=== PATIENT | female | born 1985 | race Caucasian/White ===

== ENCOUNTER 2020-09-06 08:04 | Outpatient (REF) | payer OTHER, SELFPAY ==
[2020-09-06 09:06] LABS: Hematocrit 35.9 % (37-47); Hemoglobin 11.4 g/dl (12.0-16.0); Mean Corpuscular HGB Conc 31.8 g/dl (31.0-35.0); Mean Corpuscular Hemoglobin 28.6 pg (27.0-33.0); Mean Corpuscular Volume 90.2 fL (80-98); Mean Platelet Volume 10.6 fL (9.4-12.3); Platelet Count 269 X10*3/uL (160-400); Red Blood Count 3.98 X10*6/uL (4.20-5.50); Red Cell Distribution Width 13.2 % (11.0-16.0); White Blood Count 9.1 X10*3/uL (4.8-10.8)
[2020-09-06 09:35] LABS: Alanine Aminotransferase 18 U/L (0-31); Albumin Level 4.1 g/dL (3.5-5.0); Alkaline Phosphatase 79 U/L (39-117); Anion Gap 13 (12-20); Aspartate Amino Transferase 24 U/L (5-31); Bilirubin Total 0.8 mg/dL (0.0-1.0); Blood Urea Nitrogen 9 mg/dL (9-16); Calcium 9.1 mg/dL (8.4-10.2); Carbon Dioxide 28 mmol/L (22-29); Chloride 103 mmol/L (96-108); Cholesterol 193 mg/dL; Estimated Glomerular Filt Rate > 60; Glucose Random 90 mg/dL (60-115); HDL Cholesterol 51 mg/dL; LDL Cholesterol Calculated 115 mg/dl; Potassium 4.4 mmol/L (3.3-5.1); Sodium 140 mmol/L (135-145); Total Protein 6.9 g/dL (6.5-8.0); Triglycerides 138 mg/dL
[2020-09-06 09:54] LABS: ~HepC Num1 0.07 S/CO (0.00-0.79); ~Hepatitis C Antibody Nonreactive (Nonreactive)
== END 2020-09-06 08:05 | disposition home or self-care (01) ==
LOC: HO.LAB 08:04
PROVIDERS: PCP Nurse Practitioner Family; Visit Provider Nurse Practitioner Family
DX: Z00.00 Encounter for general adult medical examination without abnormal findings (principal); E55.9 Vitamin D deficiency, unspecified
CPT/HCPCS: 36415; 80053; 80061; 82306; 85027; 86803

== ENCOUNTER 2021-12-21 12:14 | Outpatient (REF) | payer OTHER, SELFPAY ==
[2021-12-21 12:28] LABS: MANUAL DIFF FLAG NO
[2021-12-21 13:21] LABS: Basophils Percent Auto 0.3 % (0-2); Eosinophils Absolute Auto 0.2 X10*3/uL (0.0-0.4); Eosinophils Percent Auto 2.2 % (0-4); Hematocrit 34.5 % (37.0-47.0); Hemoglobin 10.4 g/dl (12.0-16.0); Imm Gran Abs Auto 0.07 X10*3/uL (0.00-0.03); Imm Gran Pct Auto 0.6 % (0.0-0.4); Lymphocytes Absolute Auto 2.3 X10*3/uL (1.2-4.9); Lymphocytes Percent Auto 21.4 % (20-40); Mean Corpuscular HGB Conc 30.1 g/dl (31.0-35.0); Mean Corpuscular Volume 79.5 fL (80.0-98.0); Mean Platelet Volume 10.9 fL (9.4-12.3); Monocytes Absolute Auto 0.6 X10*3/uL (0.1-1.2); Monocytes Percent Auto 5.7 % (2-11); Neutrophils Absolute Auto 7.6 x10*3/uL (2.0-8.3); Neutrophils Percent Auto 69.8 % (45-73); Platelet Count 313 X10*3/uL (160-400); Red Blood Count 4.34 X10*6/uL (4.20-5.50); Red Cell Distribution Width 17.2 % (11.0-16.0); White Blood Count 10.9 X10*3/uL (4.8-10.8)
[2021-12-21 14:09] LABS: Iron 69 mcg/dL (30-160); Percent Iron Saturation 17 % (15-50); Total Iron Binding Capacity 411 mcg/dL (228-428); Unsaturated Iron Binding 342 ug/dL
== END 2021-12-21 12:15 | disposition home or self-care (01) ==
LOC: HO.LAB 12:14
PROVIDERS: PCP Nurse Practitioner Family; Visit Provider Nurse Practitioner Family
DX: D64.9 Anemia, unspecified (principal)
CPT/HCPCS: 36415; 83540; 85025

== ENCOUNTER 2022-09-28 04:18 | Emergency (ER) | payer OTHER, SELFPAY ==
--- NOTE | ~2022-09-28 | US_ITS ---
EXAMINATION: US ABDOMEN LIMITED CLINICAL INFORMATION: Right upper quadrant pain. Evaluate for cholecystitis. COMPARISON: CT scan of the abdomen and pelvis dated 09/28/2022. TECHNIQUE: Real-time imaging of the gallbladder and common bile duct. FINDINGS: GALLBLADDER: Multiple calcified shadowing gallstones are seen within the dependent portion of the gallbladder, appearing mobile. No gallbladder wall thickening or pericholecystic edema noted. No sonographic Torres sign is elicited while scanning over the gallbladder. COMMON BILE DUCT: Normal in caliber measuring 0.3 cm in diameter. FREE FLUID: None. US/US abdomen limited IMPRESSION: Cholelithiasis. No definite sonographic evidence of acute cholecystitis. Close clinical correlation and follow-up as clinically appropriate is recommended.
--- NOTE | ~2022-09-28 | CT_ITS ---
EXAMINATION: CT ABDOMEN AND PELVIS WITHOUT CONTRAST CLINICAL INFORMATION: Right upper quadrant/right flank pain. COMPARISON: CT abdomen/pelvis dated 08/14/2014. TECHNIQUE: Multidetector volumetric imaging was performed from the superior aspect of the liver through the pubic symphysis. Sagittal and coronal reformatted images were obtained on the technologist's workstation. This CT examination was performed using dose optimization techniques as appropriate, variously including the following: *Automated exposure control *Adjustment of mA and/or kV according to patient size (this includes techniques or standardized protocols for targeted exams where dose is matched to indication/reason for exam; i.e. extremities or head) *Use of iterative reconstruction technique DLP: 1082 mGy-cm FINDINGS: LUNG BASES: The visualized lung bases are unremarkable. LIVER, GALLBLADDER, AND BILIARY TREE: The liver is normal in size, shape, and attenuation. No focal hepatic lesion or biliary ductal dilatation is present. The gallbladder is unremarkable with no evidence of radiopaque gallstones, gallbladder wall thickening, or obvious pericholecystic inflammatory changes. PANCREAS: Unremarkable. SPLEEN: Unremarkable. ADRENAL GLANDS: Unremarkable. KIDNEYS AND URETERS: The kidneys are normal in size, shape, and attenuation. No hydronephrosis, hydroureter, or calculi seen. No perinephric stranding. Multiple phleboliths redemonstrated within the pelvis. BLADDER: Nondistended. No urinary bladder stone. No associated inflammatory change. GASTROINTESTINAL TRACT: No small- or large-bowel obstruction. No bowel wall thickening or inflammatory change. Unremarkable appendix. PERITONEAL CAVITY: No intra-abdominal free air or free fluid. No intra-abdominal mass or organized fluid collection/abscess formation. ABDOMINAL WALL: No significant hernia is appreciated. LYMPH NODES: No significant lymphadenopathy. Central mesenteric lymph nodes are not significantly changed. VASCULAR: Unremarkable. PELVIC VISCERA: The uterus and adnexa are unremarkable. OSSEOUS STRUCTURES: Unremarkable. CT/CT abdomen pelvis wo IV con IMPRESSION: 1. No renal or ureteral stone. No hydronephrosis or hydroureter. Nondistended urinary bladder without associated inflammatory change. 2. No bowel wall thickening or inflammatory change. No small- or large-bowel obstruction. Unremarkable appendix. 3. No intra-abdominal mass, lymphadenopathy, or ascites. Fleischner guidelines were followed.
[2022-09-28 04:30] VITALS: BP 147/109; PULSE 76; RESP 16; TEMP 36.4; O2SAT 98; BMI 44.9
[2022-09-28 05:07] LABS: Hematocrit 35.7 % (37.0-47.0); Mean Corpuscular HGB Conc 30.8 g/dl (31.0-35.0); Mean Corpuscular Hemoglobin 24.8 pg (27.0-33.0); Mean Corpuscular Volume 80.6 fL (80.0-98.0); Mean Platelet Volume 10.9 fL (9.4-12.3); Platelet Count 323 X10*3/uL (160-400); Red Blood Count 4.43 X10*6/uL (4.20-5.50); Red Cell Distribution Width 15.6 % (11.0-16.0); White Blood Count 13.4 X10*3/uL (4.8-10.8)
--- NOTE | 2022-09-28 05:20 | PC.NURSE ---
Pt presents with c/o epigastric pain that radiates around into back on right side. Pain is described as a burning pain and rated 10/10. Symptoms started at approx 2300 hours last night. Pt took ibuprofen at onset and tylenol at 0100 hours with no relief. Has nausea, but denies vomiting, chest pain, shortness of breath, any fever or recent trauma. No known history of kidney, liver, or gallbladder problems.
[2022-09-28 05:28] LABS: Alanine Aminotransferase 12 U/L (0-31); Albumin Level 4.3 g/dL (3.5-5.0); Alkaline Phosphatase 83 U/L (39-117); Anion Gap 14 (12-20); Aspartate Amino Transferase 13 U/L (5-31); Bilirubin Total 0.2 mg/dL (0.0-1.0); Blood Urea Nitrogen 13 mg/dL (9-16); Calcium 9.3 mg/dL (8.4-10.2); Carbon Dioxide 23 mmol/L (22-29); Chloride 108 mmol/L (96-108); Creatinine Clr Calc Pharmacy 133.5; Estimated Glomerular Filt Rate > 60; Glucose Random 115 mg/dL (60-115); Lipase 45 U/L (8-78); Potassium 4.7 mmol/L (3.3-5.1); Sodium 140 mmol/L (135-145); Total Protein 7.1 g/dL (6.5-8.0)
[2022-09-28] MEDS: Morphine Sulfate 4 MG/ML CARTRIDGE IVPUSH (05:34)
[2022-09-28] MEDS: ondansetron HCL 4 MG/2 ML VIAL IVPUSH (05:37)
[2022-09-28] MEDS: 0.9 % Sodium Chloride 1,000 ML 999 ML IV (05:39)
--- NOTE | 2022-09-28 05:52 | PC.NURSE ---
20G IV established right AC. No infiltration, redness, or pain. Flushes well.
[2022-09-28 06:24] LABS: Appearance Urine Cloudy; Color Urine Yellow; Glucose Urine UA Negative (Negative); Leukocyte Esterase Urine Negative (Negative); Nitrite Urine Negative (Negative); Specific Gravity - Urine 1.025 (1.005-1.025); UMIC TRIGGER UACC YES; Urine Blood Negative (Negative); Urine Ketones Negative (Negative); Urine Protein 30 (1+) mg/dL (Neg-Trace)
[2022-09-28 06:27] LABS: UPreg QC Valid YES; Urine Pregnancy NEGATIVE (NEGATIVE)
[2022-09-28 06:28] LABS: Bacteria Urine Trace (None Seen); Hyaline Casts Urine 0-2 /LPF (0-2); RBC Urine 0-2 /HPF (0-2); WBC Urine 0-5 /HPF (0-5)
--- NOTE | 2022-09-28 07:53 | ED.ABDPAIN ---
HPI - Abdominal Pain General Chief Complaint: Abdominal Pain Stated Complaint: Abdominal pain to back Time Seen by Provider: 09/28/22 07:36 Source: patient Mode of arrival: ambulatory Limitations: no limitations History of Present Illness HPI narrative: This is a 37 years old female presented to the emergency department complaining of upper abdominal pain since last night, the pain is radiated to the back denies any fever diarrhea MD elicited complaint: abdominal pain Pertinent past history: none Onset (ago): day(s) (1) Location: epigastric Radiation: none Exacerbating factors: nothing Relieving factors: nothing Related Data Previous Rx's Medication Instructions Recorded oxycodone 5 mg capsule 5 mg PO Q8H PRN pain #12 caps 09/28/22 Allergies Allergy/AdvReac Type Severity Reaction Status Date / Time No Known Allergies Allergy Unverified 03/02/20 15:51 Review of Systems Constitutional: Reports no additional constitutional complaints Reports system reviewed and no additional complaints, except as documented Gastrointestinal: Reports no additional gastrointestinal complaints PMFSH Social History Social History Advance Directives: No Advance Directives Information Provided: Yes Physical Exam ED Vital Signs: Vital Signs - 24 hr 09/28/22 04:30 Temperature 97.5 F Pulse Rate 76 Respiratory Rate 16 Blood Pressure 147/109 H Pulse Oximetry 98 Oxygen Delivery Method Room Air BMI result Body Mass Index 44.9 Const General: cooperative Nutritional Appearance: obese Orientation/consciousness: oriented to person HENMT Head: Yes normal to inspection General nose exam: Normal external nose present Face and sinus: Yes normal facial exam Mouth: Normal oral and palatal mucosa present Throat: Yes posterior oropharynx normal Neck Neck: Yes normal visual inspection Chest Chest palpation & inspection: normal inspection of the chest Resp Effort & Inspection: normal respiratory effort Cardio Jugular venous distension: no JVD Rate: regular rate Rhythm: regular rhythm GI Inspection: Yes normal to inspection Palpation (GI): Soft to palpation and Tenderness to palpation present (GI) (Tenderness in the epigastric area) Percussion: Yes normal to percussion Skin General skin exam: no rashes or lesions noted Neuro General: oriented to person Cranial nerves: Yes CN's II-XII intact bilaterally Course Reevaluation(s) Reevaluation #1: I re-examined the patient at 09:45 a she is completely asymptomatic and she has no abdominal pain, ultrasound shows that she has gallstones him a no evidence of acute cholecystitis, she has a normal LFT I think at this point he can be discharged home and follow-up as outpatient with surgery. Patient and mother are very comfortable with the plan she will return if she is worse she will follow low-fat diet Time: 09:46 Medical Decision Making Medical Decision Making [facility] Narrative: Patient presented with upper abdominal pain with Differential Diagnosis Differential Diagnoses: The differential diagnosis associated with the presentation includes Gastritis/cholecystitis/pancreatitis Admission/Observation Consideration of admission/observation: Escalation of care including admission/observation considered Lab Data [facility] Lab Attestation statement: I reviewed the patient's lab results. 09/28/22 05:02 09/28/22 05:02 Labs: Lab Results 09/28/22 09/28/22 09/28/22 Range/Units 05:02 05:02 06:16 WBC 13.4 H (4.8-10.8) X10*3/uL RBC 4.43 (4.20-5.50) X10*6/uL Hgb 11.0 L (12.0-16.0) g/dl Hct 35.7 L (37.0-47.0) % MCV 80.6 (80.0-98.0) fL MCH 24.8 L (27.0-33.0) pg MCHC 30.8 L (31.0-35.0) g/dl RDW 15.6 (11.0-16.0) % Plt Count 323 (160-400) X10*3/uL MPV 10.9 (9.4-12.3) fL Absolute Nucleated RBC 0.000 (0.0-0.012) X10*3/uL Nucleated RBC % (auto) 0.0 (0.0-0.2) /100WBC Sodium 140 (135-145) mmol/L Potassium 4.7 (3.3-5.1) mmol/L Chloride 108 (96-108) mmol/L Carbon Dioxide 23 (22-29) mmol/L Anion Gap 14 (12-20) BUN 13 (9-16) mg/dL Creatinine 0.75 (0.5-1.4) mg/dL Estim Creat Clear Calc 133.5 Estimated GFR > 60 Random Glucose 115 (60-115) mg/dL Calcium 9.3 (8.4-10.2) mg/dL Total Bilirubin 0.2 (0.0-1.0) mg/dL AST 13 (5-31) U/L ALT 12 (0-31) U/L Alkaline Phosphatase 83 (39-117) U/L Total Protein 7.1 (6.5-8.0) g/dL Albumin 4.3 (3.5-5.0) g/dL Lipase 45 (8-78) U/L Urine Color Yellow Urine Appearance Cloudy Urine pH 8.0 (5.0-9.0) Ur Specific [place] 1.025 (1.005-1.025) Urine Protein 30 (1+) H (Neg-Trace) mg/dL Urine Glucose (UA) Negative (Negative) mg/dL Urine Ketones Negative (Negative) mg/dL Urine Blood Negative (Negative) Urine Nitrite Negative (Negative) Ur Leukocyte Esterase Negative (Negative) Urine RBC 0-2 (0-2) /HPF Urine WBC 0-5 (0-5) /HPF Ur Squamous Epith Cells 11-20 (0-2) /HPF Urine Bacteria Trace (None Seen) Hyaline Casts 0-2 (0-2) /LPF Urine Test (NEGATIVE) 09/28/22 Range/Units 06:16 WBC (4.8-10.8) X10*3/uL RBC (4.20-5.50) X10*6/uL Hgb (12.0-16.0) g/dl Hct (37.0-47.0) % MCV (80.0-98.0) fL MCH (27.0-33.0) pg MCHC (31.0-35.0) g/dl RDW (11.0-16.0) % Plt Count (160-400) X10*3/uL MPV (9.4-12.3) fL Absolute Nucleated RBC (0.0-0.012) X10*3/uL Nucleated RBC % (auto) (0.0-0.2) /100WBC Sodium (135-145) mmol/L Potassium (3.3-5.1) mmol/L Chloride (96-108) mmol/L Carbon Dioxide (22-29) mmol/L Anion Gap (12-20) BUN (9-16) mg/dL Creatinine (0.5-1.4) mg/dL Estim Creat Clear Calc Estimated GFR Random Glucose (60-115) mg/dL Calcium (8.4-10.2) mg/dL Total Bilirubin (0.0-1.0) mg/dL AST (5-31) U/L ALT (0-31) U/L Alkaline Phosphatase (39-117) U/L Total Protein (6.5-8.0) g/dL Albumin (3.5-5.0) g/dL Lipase (8-78) U/L Urine Color Urine Appearance Urine pH (5.0-9.0) Ur Specific [place] (1.005-1.025) Urine Protein (Neg-Trace) mg/dL Urine Glucose (UA) (Negative) mg/dL Urine Ketones (Negative) mg/dL Urine Blood (Negative) Urine Nitrite (Negative) Ur Leukocyte Esterase (Negative) Urine RBC (0-2) /HPF Urine WBC (0-5) /HPF Ur Squamous Epith Cells (0-2) /HPF Urine Bacteria (None Seen) Hyaline Casts (0-2) /LPF Urine Test NEGATIVE (NEGATIVE) Radiology Impression Discussion of test interpretation with radiology: I have reviewed the radiologist's reading. Radiologist Impression: GALLBLADDER: Multiple calcified shadowing gallstones are seen within the dependent portion of the gallbladder, appearing mobile. No gallbladder wall thickening or pericholecystic edema noted. No sonographic Torres sign is elicited while scanning over the gallbladder. COMMON BILE DUCT: Normal in caliber measuring 0.3 cm in diameter. FREE FLUID: None. US/US abdomen limited IMPRESSION: Cholelithiasis. No definite sonographic evidence of acute cholecystitis. Close clinical correlation and follow-up as clinically appropriate is recommended. ? Dictated By: Coral Hwang MD Signed By: <Electronically signed by Coral Hwang MD in OV> 09/28/22 0900 Medications Administered Discontinued Medications Generic Name Dose Route Start Last Admin Trade Name Freq PRN Reason Stop Dose Admin Sodium Chloride 1,000 mls @ 999 mls/hr 09/28/22 05:24 09/28/22 07:15 Ns IV 09/28/22 06:24 Infused .Q1H1M ONE Infusion Morphine Sulfate 4 mg 09/28/22 05:24 09/28/22 05:34 Morphine Sulfate 4 Mg/Ml Cartridge IVPUSH 09/28/22 05:25 4 mg ONCE ONE Administration Protocol Ondansetron HCl 4 mg 09/28/22 05:24 09/28/22 05:37 Ondansetron Hcl 4 Mg/2 Ml Vial IVPUSH 09/28/22 05:25 4 mg ONCE ONE Administration Discharge Plan Discharge Clinical Impression: Biliary colic Patient Disposition: Home, Self-Care Instructions: Biliary Colic (ED), Gallstones (ED) Prescriptions: New oxycodone 5 mg capsule 5 mg PO Q8H PRN (Reason: pain) Qty: 12 0RF Rx Instructions: Partial Fill upon patient request.
[2022-09-28 10:02] VITALS: BP 141/88; PULSE 82; RESP 18; TEMP 36.7; O2SAT 98
== END 2022-09-28 10:25 | disposition home or self-care (01) ==
PROVIDERS: Internal Medicine; Emergency Provider Emergency Medicine; PCP Nurse Practitioner Family
DX: K80.50 Calculus of bile duct without cholangitis or cholecystitis without obstruction (principal); E66.9 Obesity, unspecified; Z68.41 Body mass index [BMI] 40.0-44.9, adult
CPT/HCPCS: 36415; 74176; 76705; 80053; 81001; 81025; 83690; 85027; 96361; 96374; 96375; 99284; J2270; J2405

== ENCOUNTER 2023-12-27 09:03 | Outpatient (REF) | payer OTHER, SELFPAY ==
[2023-12-27 09:20] LABS: MANUAL DIFF FLAG NO
[2023-12-27 09:40] LABS: Basophils Percent Auto 0.5 % (0-2); Eosinophils Absolute Auto 0.2 X10*3/uL (0.0-0.4); Eosinophils Percent Auto 2.4 % (0-4); Hematocrit 34.1 % (37.0-47.0); Hemoglobin 11.3 g/dl (12.0-16.0); Imm Gran Abs Auto 0.05 X10*3/uL (0.00-0.03); Imm Gran Pct Auto 0.6 % (0.0-0.4); Lymphocytes Absolute Auto 1.8 X10*3/uL (1.2-4.9); Lymphocytes Percent Auto 21.2 % (20-40); Mean Corpuscular HGB Conc 33.1 g/dl (31.0-35.0); Mean Corpuscular Hemoglobin 27.8 pg (27.0-33.0); Mean Corpuscular Volume 83.8 fL (80.0-98.0); Mean Platelet Volume 10.9 fL (9.4-12.3); Monocytes Absolute Auto 0.4 X10*3/uL (0.1-1.2); Monocytes Percent Auto 4.9 % (2-11); Neutrophils Absolute Auto 6.1 x10*3/uL (2.0-8.3); Neutrophils Percent Auto 70.4 % (45-73); Platelet Count 252 X10*3/uL (160-400); Red Blood Count 4.07 X10*6/uL (4.20-5.50); Red Cell Distribution Width 13.9 % (11.0-16.0); White Blood Count 8.6 X10*3/uL (4.8-10.8)
[2023-12-27 10:30] LABS: Alanine Aminotransferase 11 U/L (0-31); Albumin Level 3.7 g/dL (3.5-5.0); Alkaline Phosphatase 66 U/L (39-117); Anion Gap 13 (12-20); Aspartate Amino Transferase 13 U/L (5-31); Bilirubin Total 0.3 mg/dL (0.0-1.0); Blood Urea Nitrogen 6 mg/dL (9-16); Calcium 9.4 mg/dL (8.4-10.2); Carbon Dioxide 20 mmol/L (22-29); Chloride 108 mmol/L (96-108); Cholesterol 194 mg/dL (<200); Estimated Glomerular Filt Rate > 60; Glucose Random 97 mg/dL (60-115); HDL Cholesterol 68 mg/dL (>40); LDL Cholesterol Calculated 105 mg/dL (<100); Potassium 4.1 mmol/L (3.3-5.1); Sodium 137 mmol/L (135-145); Triglycerides 106 mg/dL (<150)
[2023-12-27 10:37] LABS: Estimated Average Glucose 100 mg/dL; Hemoglobin A1c % 5.1 % (<6.0)
[2023-12-27 10:57] LABS: Vitamin B12 193 pg/mL (200-900)
== END 2023-12-27 09:04 | disposition home or self-care (01) ==
LOC: HO.LAB 09:03
PROVIDERS: PCP Nurse Practitioner Adult Health; Visit Provider Nurse Practitioner Adult Health
DX: E28.2 Polycystic ovarian syndrome (principal); Z13.1 Encounter for screening for diabetes mellitus
CPT/HCPCS: 36415; 80053; 80061; 82607; 83036; 85025

== ENCOUNTER 2024-06-06 14:07 | Emergency (ER) | payer OTHER, SELFPAY ==
[2024-06-06] VITALS (7 sets, daily range): BP systolic 102–166; BP diastolic 54–98; PULSE 72–98; RESP 16–18; TEMP 36.4–36.8; O2SAT 97–99; BMI 51.1
--- NOTE | 2024-06-06 14:09 | ED.GENADULT ---
HPI - General Adult General Chief complaint: Skin/Abscess/Foreign Body Stated complaint: abscess Time Seen by Provider: 06/06/24 14:23 Source: patient and family () Mode of arrival: ambulatory Limitations: no limitations History of Present Illness ED Provider: Dr. Naman Rodrigez HPI narrative: 38-year-old female history of asthma, GERD, depression, 38 weeks , planned induction date 06/17/2023 who presents emergency department for evaluation of pilonidal cyst and an elevated blood pressure. The patient states she was had upon dialysis for proximally 1 week and has been on Keflex 500 mg 3 times a day with no improvement of her symptoms. She went to an urgent care clinic today and was found to have an elevated blood pressure and referred to the emergency department for evaluation. The patient states she was having 8/10 pain in the pilonidal area/abscess area. She states she was had a pilonidal abscess in the past with her last . Patient has been getting care at [facility] she states that she did have 1 elevated blood pressure at 1 of her visits but otherwise has had normal blood pressures. Patient denies headache, nausea, vomiting, abdominal pain. She was not noticed any swelling in her lower extremities. Related Data Previous Rx's ?Medication ?Instructions ?Recorded oxycodone 5 mg capsule 5 mg PO Q8H PRN pain #12 caps 09/28/22 Allergies Allergy/AdvReac Type Severity Reaction Status Date / Time No Known Allergies Allergy Unverified 06/06/24 14:13 Review of Systems Review of Systems: Yes all other systems are reviewed and are negative [facility] Social History Social History Alcohol intake: never Smoked in Last 30 Days: No Use of substances other than those prescribed or required for medical reasons: No Advance Directives: No Advance Directives Information Provided: No Patient : Yes Physical Exam ED Vital Signs: Vital Signs - 24 hr 06/06/24 14:10 06/06/24 14:59 06/06/24 15:47 Temperature 97.6 F Pulse Rate 98 85 72 Respiratory Rate 18 Blood Pressure 166/98 H 109/54 L 102/60 Pulse Oximetry 97 Oxygen Delivery Method Room Air 06/06/24 16:00 06/06/24 16:31 06/06/24 17:01 Temperature Pulse Rate 83 80 79 Respiratory Rate 18 16 18 Blood Pressure 123/72 109/56 L 120/57 L Pulse Oximetry 98 99 99 Oxygen Delivery Method Room Air Room Air Room Air BMI result Body Mass Index 51.1 Vital signs revealed an elevated blood pressure of 166/98 Exam: General: Awake, alert in no distress Head: Normocephalic, atraumatic EENT: PERRL, Lids normal, sclera normal, conjunctiva normal, nose normal , ears normal, throat without erythema or exudates Neck: Supple, no adenopathy Lung: breath sounds symmetric, no wheezing, rales or rhonchi Chest: symmetric movement, nontender Heart: regular rate and rhythm, normal S1, S2 no murmurs or rubs Abdomen: soft, non-tender, nondistended, normal bowel sounds Back: no vertebral tenderness, no CVAT Extremities: no deformities, moves all extremities symmetrically, no edema Skin exam: The patient has a 3 x 2 cm flocculent abscess in the pilonidal area with erythema is overlying the abscess only, no increased warmth. The abscess is very tender to palpation. Neuro: Awake, alert, oriented, normal speech, cranial nerves intact, moves all extremities symmetrically Psych: Pleasant, cooperative Course Course Course Narrative: This is a rapid medical exam performed by Hu Bassett NP: Additional HPI, ROS, PE not included below will be deferred to primary provider. Patient is a 38-year-old female KURT 06/17 presenting to the ED from with complaint of pilonidal abscess. Has been on keflex for the past week without improvement. Goes to [facility] for care. Unable to visualize area in triage due to privacy concerns. Plan: ?I&D Medications Administered Discontinued Medications Generic Name Dose Route Start Last Admin Trade Name Freq PRN Reason Stop Dose Admin Acetaminophen 975 mg 06/06/24 14:54 06/06/24 15:09 Acetaminophen 325 Mg Tablet PO 06/06/24 14:55 975 mg ONCE STA Administration Cephalexin HCl 1,000 mg 06/06/24 14:54 06/06/24 15:09 Cephalexin 500 Mg Capsule PO 06/06/24 14:55 1,000 mg ONCE ONE Administration Lidocaine HCl 5 ml 06/06/24 14:34 06/06/24 15:11 Lidocaine Hcl 1 % Mpf 5 Ml Vial INFILTRATI 06/06/24 14:35 5 ml ONCE STA Administration Medical Decision Making Medical Decision Making [facility] Narrative: 38-year-old female history of asthma, GERD, depression, 38 weeks , planned induction date 06/17/2023 who presents emergency department for evaluation of pilonidal cyst and an elevated blood pressure. The patient states she was had upon dialysis for proximally 1 week and has been on Keflex 500 mg 3 times a day with no improvement of her symptoms. She went to an urgent care clinic today and was found to have an elevated blood pressure and referred to the emergency department for evaluation. The patient states she was having 8/10 pain in the pilonidal area/abscess area. She states she was had a pilonidal abscess in the past with her last . Vital signs did reveal an elevated 166/98 Lab Data 06/06/24 15:56 06/06/24 15:56 Labs: Lab Results 06/06/24 06/06/24 Range/Units 15:56 16:13 WBC 11.8 H (4.8-10.8) X10*3/uL RBC 4.30 (4.20-5.50) X10*6/uL Hgb 12.1 (12.0-16.0) g/dl Hct 37.6 (37.0-47.0) % MCV 87.4 (80.0-98.0) fL MCH 28.1 (27.0-33.0) pg MCHC 32.2 (31.0-35.0) g/dl RDW 14.8 (11.0-16.0) % Plt Count 223 (160-400) X10*3/uL MPV 11.9 (9.4-12.3) fL Immature Gran % (Auto) 0.4 (0.0-0.4) % Neut % (Auto) 79.5 H (45-73) % Lymph % (Auto) 13.1 L (20-40) % [place] % (Auto) 5.3 (2-11) % Eos % (Auto) 1.4 (0-4) % Baso % (Auto) 0.3 (0-2) % Lymph # (Auto) 1.6 (1.2-4.9) X10*3/uL [place] # (Auto) 0.6 (0.1-1.2) X10*3/uL Eos # (Auto) 0.2 (0.0-0.4) X10*3/uL Baso # (Auto) 0.0 (0.0-0.2) X10*3/uL Abs Immat Gran (auto) 0.05 H (0.00-0.03) X10*3/uL Absolute Neuts (auto) 9.4 H (2.0-8.3) x10*3/uL Absolute Nucleated RBC 0.000 (0.0-0.012) X10*3/uL Nucleated RBC % (auto) 0.0 (0.0-0.2) /100WBC PT 11.3 (10.9-12.4) SEC INR 1.0 (0.9-1.1) APTT 31.2 (26.0-36.8) SEC Sodium 137 (135-145) mmol/L Potassium 4.6 (3.3-5.1) mmol/L Chloride 107 (96-108) mmol/L Carbon Dioxide 21 L (22-29) mmol/L Anion Gap 14 (12-20) BUN 13 (9-16) mg/dL Creatinine 0.86 (0.5-1.4) mg/dL Estim Creat Clear Calc 124.6 Estimated GFR > 60 Random Glucose 78 (60-115) mg/dL Lactic Acid 1.7 (0.5-2.0) mmol/L Calcium 9.2 (8.4-10.2) mg/dL Total Bilirubin 0.3 (0.0-1.0) mg/dL AST 27 (5-31) U/L ALT 11 (0-31) U/L Alkaline Phosphatase 133 H (39-117) U/L Total Protein 6.9 (6.5-8.0) g/dL Albumin 3.3 L (3.5-5.0) g/dL Lipase 36 (8-78) U/L Beta HCG, Quant 5467 mIU/mL Urine Color Yellow Urine Appearance Clear Urine pH 6.5 (5.0-9.0) Ur Specific [place] 1.015 (1.005-1.025) Urine Protein Negative (Neg-Trace) mg/dL Urine Glucose (UA) Negative (Negative) mg/dL Urine Ketones Negative (Negative) mg/dL Urine Blood Negative (Negative) Urine Nitrite Negative (Negative) Ur Leukocyte Esterase Trace H (Negative) Urine RBC 0-2 (0-2) /HPF Urine WBC 0-5 (0-5) /HPF Ur Squamous Epith Cells 3-5 (0-2) /HPF Urine Bacteria None Seen (None Seen) Hyaline Casts 0-2 (0-2) /LPF U Random Total Protein 11 (<12) mg/dL Urine Creatinine 78.37 mg/dL Protein/Creatinin Ratio 0.14 (<0.2) Discharge Plan Discharge Clinical Impression: Pilonidal abscess, Encounter for incision and drainage procedure, Third trimester Patient Disposition: Home, Self-Care Instructions: Pilonidal Cyst (ED) Additional Instructions: You had a pilonidal abscess (collection of pus under the skin) which was incised, drained and packed with gauze. Gauze packing should stay in for 4 days. You can remove this after 4 days by pulling on the abscess cavity. If the gauze falls out before 4 days it does not need to be replaced. Use a heating pad on low on the area of the abscess cavity this will help the healing process. Finish your course of antibiotics as prescribed by your other provider. Take Tylenol (acetaminophen) 500 mg pills, 2 pills every 6 hours as needed for pain You did have an elevated blood pressure on initial presentation but I believe that this was secondary to the pain that your having from the abscess. After your abscess was drained your blood pressure is are now normal Your blood work was reassuring. Your platelet count was normal, your liver tests were normal and you had no protein in your urine. I did talk to the covering OBGYN doctor, Dr. Hernandes at [facility] and I did discuss your elevated blood pressures with her. My opinion in her opinion in his that the blood pressure was high due to your pain and not due to preeclampsia but it is important that you follow-up with your OBGYN doctor tomorrow for re-evaluation Please return to the emergency department if your symptoms get worse or if you develop any symptoms that are concerning to you. We do not have OBGYN services here at this hospital and if you are sick in any way I strongly advised that you go to [facility] to be evaluated by their OBGYN service. Prescriptions: No Action oxycodone 5 mg capsule 5 mg PO Q8H PRN (Reason: pain) Qty: 12 0RF Rx Instructions: Partial Fill upon patient request. Print Language: Cambodian
[2024-06-06] MEDS: cephALEXin 500 MG CAPSULE 1000 MG PO (15:09)
[2024-06-06] MEDS: Acetaminophen 325 MG TABLET 975 MG PO (15:09)
[2024-06-06] MEDS: Lidocaine HCl 1 % MPF 5 ML VIAL INFILTRATI (15:11)
--- NOTE | 2024-06-06 15:15 | PC.NURSE ---
medication administered per provider order. effectiveness pending. pt continues to rest in no apparent distress at this time. plan of care ongoing.
[2024-06-06 16:05] LABS: MANUAL DIFF FLAG NO
[2024-06-06 16:08] LABS: Basophils Percent Auto 0.3 % (0-2); Eosinophils Absolute Auto 0.2 X10*3/uL (0.0-0.4); Eosinophils Percent Auto 1.4 % (0-4); Hematocrit 37.6 % (37.0-47.0); Hemoglobin 12.1 g/dl (12.0-16.0); Imm Gran Abs Auto 0.05 X10*3/uL (0.00-0.03); Imm Gran Pct Auto 0.4 % (0.0-0.4); Lymphocytes Absolute Auto 1.6 X10*3/uL (1.2-4.9); Lymphocytes Percent Auto 13.1 % (20-40); Mean Corpuscular HGB Conc 32.2 g/dl (31.0-35.0); Mean Corpuscular Hemoglobin 28.1 pg (27.0-33.0); Mean Corpuscular Volume 87.4 fL (80.0-98.0); Mean Platelet Volume 11.9 fL (9.4-12.3); Monocytes Absolute Auto 0.6 X10*3/uL (0.1-1.2); Monocytes Percent Auto 5.3 % (2-11); Neutrophils Absolute Auto 9.4 x10*3/uL (2.0-8.3); Neutrophils Percent Auto 79.5 % (45-73); Platelet Count 223 X10*3/uL (160-400); Red Cell Distribution Width 14.8 % (11.0-16.0); White Blood Count 11.8 X10*3/uL (4.8-10.8)
[2024-06-06 16:13] LABS: Prothrombin Time 11.3 SEC (10.9-12.4)
[2024-06-06 16:16] LABS: Partial Thromboplastin Time 31.2 SEC (26.0-36.8)
[2024-06-06 16:21] LABS: Lactic Acid 1.7 mmol/L (0.5-2.0)
[2024-06-06 16:21] LABS: Appearance Urine Clear; Color Urine Yellow; Glucose Urine UA Negative (Negative); Leukocyte Esterase Urine Trace (Negative); Nitrite Urine Negative (Negative); PH 6.5 (5.0-9.0); Specific Gravity - Urine 1.015 (1.005-1.025); UMIC TRIGGER UACC YES; Urine Blood Negative (Negative); Urine Ketones Negative (Negative); Urine Protein Negative (Neg-Trace)
[2024-06-06 16:30] LABS: Albumin Level 3.3 g/dL (3.5-5.0); Anion Gap 14 (12-20); Aspartate Amino Transferase 27 U/L (5-31); Bilirubin Total 0.3 mg/dL (0.0-1.0); Blood Urea Nitrogen 13 mg/dL (9-16); Calcium 9.2 mg/dL (8.4-10.2); Carbon Dioxide 21 mmol/L (22-29); Chloride 107 mmol/L (96-108); Creatinine Clr Calc Pharmacy 124.6; Estimated Glomerular Filt Rate > 60; Glucose Random 78 mg/dL (60-115); HCG Quantitative 5467 mIU/mL; Lipase 36 U/L (8-78); Potassium 4.6 mmol/L (3.3-5.1); Sodium 137 mmol/L (135-145); Total Protein 6.9 g/dL (6.5-8.0)
[2024-06-06 16:33] LABS: Bacteria Urine None Seen (None Seen); Hyaline Casts Urine 0-2 /LPF (0-2); RBC Urine 0-2 /HPF (0-2); WBC Urine 0-5 /HPF (0-5)
[2024-06-06 16:37] LABS: Creatinine Urine 78.37 mg/dL; Protein/Creatinine Ratio, Ur 0.14 (<0.2); Total Protein Urine Random 11 mg/dL (<12)
--- NOTE | 2024-06-06 17:08 | PC.NURSE ---
labs obtained/sent to lab. vss and up to date. pt and spoke w/ ED provider and are aware of plan of care moving forward at this time.
[2024-06-06 17:15] LABS: Alanine Aminotransferase 11 U/L (0-31); Alkaline Phosphatase 133 U/L (39-117)
== END 2024-06-06 18:14 | disposition home or self-care (01) ==
PROVIDERS: Emergency Provider Emergency Medicine Emergency Medical Services; PCP Nurse Practitioner Adult Health
DX: L05.01 Pilonidal cyst with abscess (principal); O26.893 Other specified pregnancy related conditions, third trimester; R10.2 Pelvic and perineal pain; Z3A.38 38 weeks gestation of pregnancy; Z79.899 Other long term (current) drug therapy; Z51.81 Encounter for therapeutic drug level monitoring
CPT/HCPCS: 10080; 36415; 80053; 81001; 82570; 83605; 83690; 84156; 84702; 85025; 85610; 85730; 87070; 87077; 87147; 87205; 99284; J2003

== ENCOUNTER 2024-10-01 08:06 | Outpatient (REF) | payer OTHER, SELFPAY ==
[2024-10-01 08:16] LABS: MANUAL DIFF FLAG NO
[2024-10-01 08:27] LABS: Basophils Absolute Auto 0.1 X10*3/uL (0.0-0.2); Basophils Percent Auto 0.5 % (0-2); Eosinophils Absolute Auto 0.3 X10*3/uL (0.0-0.4); Eosinophils Percent Auto 3.2 % (0-4); Hematocrit 35.1 % (37.0-47.0); Imm Gran Abs Auto 0.03 X10*3/uL (0.00-0.03); Imm Gran Pct Auto 0.3 % (0.0-0.4); Lymphocytes Percent Auto 20.9 % (20-40); Mean Corpuscular HGB Conc 31.3 g/dl (31.0-35.0); Mean Corpuscular Hemoglobin 25.6 pg (27.0-33.0); Mean Corpuscular Volume 81.6 fL (80.0-98.0); Mean Platelet Volume 11.2 fL (9.4-12.3); Monocytes Absolute Auto 0.5 X10*3/uL (0.1-1.2); Monocytes Percent Auto 4.9 % (2-11); Neutrophils Absolute Auto 6.5 x10*3/uL (2.0-8.3); Neutrophils Percent Auto 70.2 % (45-73); Platelet Count 230 X10*3/uL (160-400); Red Cell Distribution Width 14.9 % (11.0-16.0); White Blood Count 9.3 X10*3/uL (4.8-10.8)
[2024-10-01 08:31] LABS: Estimated Average Glucose 111 mg/dL; Hemoglobin A1C 108.5172 umol/L; Hemoglobin A1c % 5.5 % (<6.0); Total Hemoglobin (HGBA1C) 2955.5086 umol/L
[2024-10-01 08:59] LABS: Alanine Aminotransferase 15 U/L (0-31); Albumin Level 4.1 g/dL (3.5-5.0); Anion Gap 11 (12-20); Aspartate Amino Transferase 18 U/L (5-31); Bilirubin Total 0.5 mg/dL (0.0-1.0); Blood Urea Nitrogen 14 mg/dL (9-16); Calcium 8.9 mg/dL (8.4-10.2); Carbon Dioxide 25 mmol/L (22-29); Chloride 108 mmol/L (96-108); Cholesterol 174 mg/dL (<200); Estimated Glomerular Filt Rate > 60; Glucose Random 94 mg/dL (60-115); HDL Cholesterol 45 mg/dL (>40); Iron 45 mcg/dL (30-160); LDL Cholesterol Calculated 109 mg/dL (<100); Percent Iron Saturation 14 % (15-50); Potassium 3.9 mmol/L (3.3-5.1); Sodium 140 mmol/L (135-145); Total Iron Binding Capacity 329 mcg/dL (228-428); Total Protein 7.1 g/dL (6.5-8.0); Triglycerides 104 mg/dL (<150); Unsaturated Iron Binding 284 ug/dL
[2024-10-01 09:12] LABS: Alkaline Phosphatase 85 U/L (39-117); TSH reflex Free T4 2.25 uIU/mL (0.32-4.0)
== END 2024-10-01 08:07 | disposition home or self-care (01) ==
LOC: HO.LAB 08:06
PROVIDERS: PCP Physician Assistant Surgical; Visit Provider Physician Assistant Surgical
DX: Z00.00 Encounter for general adult medical examination without abnormal findings (principal); E03.8 Other specified hypothyroidism; D50.9 Iron deficiency anemia, unspecified; R73.01 Impaired fasting glucose
CPT/HCPCS: 36415; 80053; 80061; 83036; 83540; 84443; 85025